=== PATIENT | male | born 1945 | race Caucasian/White ===

== ENCOUNTER → 2017-06-21 | Outpatient (CLI) | payer MEDICARE ==
--- NOTE | 2017-06-21 14:08 | RADRPT ---
EXAM DATE/TIME: 06/21/2017 08:53 [place] COMPARISON : No previous studies available for comparison. OUTSIDE COMPARISON: CT examination of the abdomen dated March 15, 2017 was reviewed from the [facility]. INDICATIONS : Solid left renal mass. Evaluate for cryoablation. Patient's CT examination reveals a slightly less than 4 cm solid mass arising in the lateral upper po le cortex of the left kidney in this patient with a horse shoe kidney. The mass lies in very close pr oximity to multiple small bowel loops, the proximal descending colon and the splenic hilar blood vess els on this examination. It is not out of the realm of possibility that different patient positioning might improve the anatomic relationships to allow better treatment accessibility of the lesion and w e also may be able to improve the anatomic margins with pneumo-dissection or hydro-dissection at the time of ablation procedure. That said, a lesion of this size would still not be optimal for ablative treatment. If the patient is a reasonable candidate for partial nephrectomy, I believe that would pro vide the greatest certainty of disease free survival. Thanks very much, Crow, for the invitation to participate in the care of this gentleman. If it turns out that he is not a good surgical candidate, please have him come and see me for a consultation so t hat we fully discuss the challenges of percutaneous treatment and can arrange for some additional mckenzie ging to better evaluate feasibility. Misha Joyce MD on June 21, 2017 at 13:52 Board Certified Radiologist. This report was verified electronically.
== END ==
LOC: HRAD 08:37
PROVIDERS: ATTEND Urology
DX: N28.89 Other specified disorders of kidney and ureter (principal)